=== PATIENT | female | born 1970 | race Caucasian/White ===

== ENCOUNTER 2023-09-10 19:36 | Inpatient (IN) | payer OTHER ==
[~2023-09-10] VITALS: Ht 154.9 cm; Wt 90.7 kg
[2023-09-10 19:51] VITALS: BP 150/81; PULSE 80; RESP 18; TEMP 97; O2SAT 97
[2023-09-10 20:53] LABS: BASOPHILS # (AUTO) 0.1 K/uL (0.00-0.22); BASOPHILS % (AUTO) 0.8 % (0.0-2.0); EOSINOPHILS # (AUTO) 1.2 K/uL (0-0.4); EOSINOPHILS % (AUTO) 9.9 % (0.0-4.0); HEMOGLOBIN 13.3 g/dL (12.0-16.0); LYMPHOCYTES # (AUTO) 4.7 K/uL (2.5-16.5); LYMPHOCYTES % (AUTO) 37.7 % (20.5-51.1); MEAN CORPUSCULAR HEMOGLOBIN 30 pg (27-31); MEAN CORPUSCULAR HGB CONC 34 g/dL (33-37); MEAN CORPUSCULAR VOLUME 89.3 fL (80-94); MONOCYTES # (AUTO) 0.8 K/uL (0.8-1.0); MONOCYTES % (AUTO) 6.1 % (1.7-9.3); NEUTROPHILS # (AUTO) 5.6 K/uL (1.8-7.7); NEUTROPHILS % (AUTO) 45.5 % (42.2-75.2); PLATELET COUNT (AUTO) 285 K/uL (140-450); RED BLOOD CELL COUNT(AUTO) 4.36 MIL/uL (4.20-5.40); RED CELL DISTRIBUTION WIDTH 13.3 % (11.6-13.7); WHITE BLOOD COUNT (AUTO) 12.4 K/uL (4.8-10.8)
[2023-09-10] MEDS ORDERED: KETOROLAC 30 MG/ML VIAL IM ONE (21:30)
[2023-09-10] MEDS ORDERED: LIDOCAINE 5% 1 EA PATCH TP ONE (21:30)
[2023-09-10 21:31] LABS: ALANINE AMINOTRANSFERASE 34 U/L (12-78); ALBUMIN 3.4 g/dL (3.4-5.0); ALKALINE PHOSPHATASE 135 U/L (50-136); ASPARTATE AMINOTRANSFERASE 15 U/L (15-37); BILIRUBIN,DIRECT 0.1 mg/dL (0.0-0.3); TOTAL BILIRUBIN 0.5 mg/dL (0.0-1.0); TOTAL PROTEIN, SERUM 8.6 g/dL (6.4-8.2)
[2023-09-10] MEDS ORDERED: ASPIRIN 325 MG TAB PO ONE (21:40)
[2023-09-10] MEDS ORDERED: ASPIRIN 81 MG TAB.CHEW ONE (21:44)
[2023-09-10 21:45] LABS: CALCIUM 9.6 mg/dL (8.5-10.1); CARBON DIOXIDE 32.6 mmol/L (21-32); CREATININE 0.8 mg/dL (0.6-1.3); POTASSIUM 3.6 mmol/L (3.5-5.1)
[2023-09-10 22:00] VITALS: O2SAT 98
[2023-09-10] MEDS ORDERED: ACETAMINOPHEN 325 MG TAB PO PRN (23:25)
[2023-09-10] MEDS ORDERED: ONDANSETRON 4 MG/2 ML VIAL IVP PRN (23:25)
[2023-09-10] MEDS ORDERED: MAG SULF 2000 MG/WATER PREMIX 50 ML IV PRN (23:25)
[2023-09-10] MEDS ORDERED: MAGNESIUM OXIDE 400 MG TAB PO PRN (23:25)
[2023-09-10] MEDS ORDERED: KCL 20 MEQ IN 100 mL PREMIX 200 ML IV PRN (23:25)
[2023-09-10] MEDS ORDERED: POTASSIUM CHLORIDE 10 MEQ TABER PO PRN (23:25)
[2023-09-10] MEDS ORDERED: hePARIN / DEXT 5% PREMIX 250 ML IV SCH (23:35)
[2023-09-10] MEDS ORDERED: HEPARIN PER PHARMACY MC PRN (23:35)
[2023-09-11] MEDS: MORPHINE SULFATE 4 MG/ML SYR IVP PRN ×2 (03:00→23:30)
[2023-09-11 03:41] LABS: INR 0.9 (0.8-1.2); PARTIAL THROMBOPLASTIN TIME 25.9 secs (22-35.6); PROTHROMBIN TIME 9.5 secs (10.8-13.4)
[2023-09-11] MEDS: hePARIN / DEXT 5% PREMIX 250 ML IV SCH ×2 (04:59→21:51)
[2023-09-11 06:19] VITALS: O2SAT 98
[2023-09-11 07:30] LABS: BASOPHILS # (AUTO) 0.1 K/uL (0.00-0.22); BASOPHILS % (AUTO) 0.7 % (0.0-2.0); EOSINOPHILS # (AUTO) 1.4 K/uL (0-0.4); EOSINOPHILS % (AUTO) 10.5 % (0.0-4.0); HEMATOCRIT 36.1 % (36-48); HEMOGLOBIN 12.3 g/dL (12.0-16.0); LYMPHOCYTES # (AUTO) 6.2 K/uL (2.5-16.5); LYMPHOCYTES % (AUTO) 47.2 % (20.5-51.1); MEAN CORPUSCULAR HEMOGLOBIN 31 pg (27-31); MEAN CORPUSCULAR HGB CONC 34 g/dL (33-37); MEAN CORPUSCULAR VOLUME 89.7 fL (80-94); MONOCYTES # (AUTO) 0.6 K/uL (0.8-1.0); MONOCYTES % (AUTO) 4.7 % (1.7-9.3); NEUTROPHILS # (AUTO) 4.8 K/uL (1.8-7.7); NEUTROPHILS % (AUTO) 36.9 % (42.2-75.2); PLATELET COUNT (AUTO) 246 K/uL (140-450); RED BLOOD CELL COUNT(AUTO) 4.02 MIL/uL (4.20-5.40); RED CELL DISTRIBUTION WIDTH 13.1 % (11.6-13.7); WHITE BLOOD COUNT (AUTO) 13.1 K/uL (4.8-10.8)
[2023-09-11 07:55] LABS: CARBON DIOXIDE 29.6 mmol/L (21-32); CREATININE 0.7 mg/dL (0.6-1.3); POTASSIUM 3.6 mmol/L (3.5-5.1); TOTAL BILIRUBIN 0.3 mg/dL (0.0-1.0); TOTAL PROTEIN, SERUM 7.5 g/dL (6.4-8.2)
[2023-09-11 08:32] VITALS: O2SAT 98
[2023-09-11] MEDS: HYDROcodone/APAP 5/325 MG 1 TAB TAB PO PRN (13:54)
[2023-09-11 19:26] VITALS: O2SAT 98
[2023-09-11 21:20] VITALS: BP 122/53; PULSE 73; RESP 18; TEMP 97.8; O2SAT 94
[2023-09-11 22:00] VITALS: PULSE 71
[2023-09-12] VITALS: BP 118/55; PULSE 68; PULSE 76; RESP 18; TEMP 97.8; O2SAT 93
[2023-09-12] MEDS: hePARIN / DEXT 5% PREMIX 250 ML IV SCH ×4 (03:13→21:22)
[2023-09-12 04:00] VITALS: BP 110/52; PULSE 75; PULSE 82; RESP 18; TEMP 98.1; O2SAT 93
[2023-09-12 07:31] LABS: HEMOGLOBIN 12.3 g/dL (12.0-16.0); MEAN CORPUSCULAR HEMOGLOBIN 31 pg (27-31); MEAN CORPUSCULAR HGB CONC 34 g/dL (33-37); MEAN CORPUSCULAR VOLUME 89.4 fL (80-94)
[2023-09-12 07:35] LABS: BASOPHILS # (AUTO) 0.1 K/uL (0.00-0.22); BASOPHILS % (AUTO) 0.7 % (0.0-2.0); EOSINOPHILS # (AUTO) 1.7 K/uL (0-0.4); EOSINOPHILS % (AUTO) 10.8 % (0.0-4.0); HEMATOCRIT 36.1 % (36-48); LYMPHOCYTES % (AUTO) 45.3 % (20.5-51.1); MONOCYTES # (AUTO) 0.8 K/uL (0.8-1.0); MONOCYTES % (AUTO) 5.4 % (1.7-9.3); NEUTROPHILS # (AUTO) 5.9 K/uL (1.8-7.7); NEUTROPHILS % (AUTO) 37.8 % (42.2-75.2); PLATELET COUNT (AUTO) 257 K/uL (140-450); RED BLOOD CELL COUNT(AUTO) 4.04 MIL/uL (4.20-5.40); RED CELL DISTRIBUTION WIDTH 13.3 % (11.6-13.7); WHITE BLOOD COUNT (AUTO) 15.5 K/uL (4.8-10.8)
[2023-09-12 07:57] LABS: ALBUMIN 2.9 g/dL (3.4-5.0); ANION GAP 11.8 (8-16); CALCIUM 8.6 mg/dL (8.5-10.1); CARBON DIOXIDE 28.6 mmol/L (21-32); CREATININE 0.7 mg/dL (0.6-1.3); MAGNESIUM 1.9 mg/dL (1.8-2.4); POTASSIUM 3.4 mmol/L (3.5-5.1); TOTAL BILIRUBIN 0.4 mg/dL (0.0-1.0); TOTAL PROTEIN, SERUM 7.5 g/dL (6.4-8.2)
[2023-09-12 08:00] VITALS: BP 111/54; PULSE 63; RESP 16; TEMP 97.3; O2SAT 96
[2023-09-12] MEDS: ECOTRIN 81 MG TABEC PO SCH (08:25)
[2023-09-12 12:00] VITALS: BP 116/62; PULSE 68; RESP 16; TEMP 98.3; O2SAT 96
[2023-09-12 14:14] LABS: APPEARANCE,URINE CLEAR (CLEAR); BILIRUBIN,URINE NEGATIVE (NEGATIVE); BLOOD, URINE NEGATIVE (NEGATIVE); COLOR,URINE YELLOW (YELLOW); LEUKOCYTE ESTERASE ,URINE NEGATIVE (NEGATIVE); NITRITE, URINE NEGATIVE (NEGATIVE); PH,URINE 6.5 (5.0-9.0); PROTEIN,URINE NEGATIVE (NEGATIVE); UGLUCOSE NEGATIVE (NEGATIVE); UROBILINOGEN,URINE 0.2 EU/dL (0.2 - 1)
[2023-09-12 16:00] VITALS: BP 117/50; PULSE 64; RESP 17; TEMP 98.1; O2SAT 96
[2023-09-12 20:00] VITALS: BP 125/50; PULSE 73; PULSE 77; RESP 18; TEMP 97.9; O2SAT 94
[2023-09-12] MEDS ORDERED: METF-1243 PO (20:25)
[2023-09-12] MEDS ORDERED: ATOR10TA PO (20:25)
[2023-09-12] MEDS ORDERED: ASPI81EC19 PO (20:25)
[2023-09-12] MEDS: HYDROcodone/APAP 5/325 MG 1 TAB TAB PO PRN (21:37)
[2023-09-13] VITALS: BP 112/61; PULSE 67; PULSE 72; RESP 18; TEMP 99; O2SAT 97
[2023-09-13 03:27] LABS: BASOPHILS # (AUTO) 0.1 K/uL (0.00-0.22); BASOPHILS % (AUTO) 0.5 % (0.0-2.0); EOSINOPHILS # (AUTO) 1.5 K/uL (0-0.4); EOSINOPHILS % (AUTO) 9.6 % (0.0-4.0); HEMATOCRIT 36.8 % (36-48); HEMOGLOBIN 12.5 g/dL (12.0-16.0); LYMPHOCYTES # (AUTO) 7.2 K/uL (2.5-16.5); LYMPHOCYTES % (AUTO) 44.6 % (20.5-51.1); MEAN CORPUSCULAR HEMOGLOBIN 30 pg (27-31); MEAN CORPUSCULAR HGB CONC 34 g/dL (33-37); MONOCYTES # (AUTO) 0.8 K/uL (0.8-1.0); MONOCYTES % (AUTO) 5.2 % (1.7-9.3); NEUTROPHILS # (AUTO) 6.4 K/uL (1.8-7.7); NEUTROPHILS % (AUTO) 40.1 % (42.2-75.2); PLATELET COUNT (AUTO) 254 K/uL (140-450); RED BLOOD CELL COUNT(AUTO) 4.13 MIL/uL (4.20-5.40); RED CELL DISTRIBUTION WIDTH 13.4 % (11.6-13.7); WHITE BLOOD COUNT (AUTO) 16.1 K/uL (4.8-10.8)
[2023-09-13 03:47] LABS: ALBUMIN 3.1 g/dL (3.4-5.0); ANION GAP 10.9 (8-16); CALCIUM 8.9 mg/dL (8.5-10.1); CARBON DIOXIDE 29.7 mmol/L (21-32); CREATININE 0.6 mg/dL (0.6-1.3); POTASSIUM 3.6 mmol/L (3.5-5.1); TOTAL BILIRUBIN 0.3 mg/dL (0.0-1.0); TOTAL PROTEIN, SERUM 7.1 g/dL (6.4-8.2)
[2023-09-13 04:00] VITALS: BP 104/49; PULSE 57; PULSE 69; RESP 18; TEMP 98.7; O2SAT 92
[2023-09-13] MEDS: hePARIN / DEXT 5% PREMIX 250 ML IV SCH (04:53)
[2023-09-13 08:00] VITALS: BP 112/52; PULSE 67; RESP 18; TEMP 98; O2SAT 94
[2023-09-13] MEDS: ECOTRIN 81 MG TABEC PO SCH (08:34)
[2023-09-13] MEDS: HYDROcodone/APAP 5/325 MG 1 TAB TAB PO PRN (08:35)
[2023-09-13 12:00] VITALS: BP 109/54; PULSE 60; RESP 18; TEMP 97; O2SAT 94
[2023-09-13 16:43] VITALS: BP 109/54; PULSE 60; RESP 18; TEMP 97
== END 2023-09-13 17:40 | disposition home or self-care (01) | DRG 190 ==
LOC: MED 19:36 → MMU 23:25 → MTU 09-11 21:06
PROVIDERS: ADMIT Hospitalist; ATTEND Hospitalist
DX: I20.9 Angina pectoris, unspecified (principal); I21.A1 Myocardial infarction type 2; J96.01 Acute respiratory failure with hypoxia; I31.9 Disease of pericardium, unspecified; K76.0 Fatty (change of) liver, not elsewhere classified; D72.829 Elevated white blood cell count, unspecified; I45.10 Unspecified right bundle-branch block; E66.9 Obesity, unspecified; Z90.49 Acquired absence of other specified parts of digestive tract; Z98.891 History of uterine scar from previous surgery; Z68.37 Body mass index [BMI] 37.0-37.9, adult
CPT/HCPCS: 36415; 71045; 71275; 80048; 80053; 80076; 81003; 83735; 83880; 84484; 85025; 85610; 85651; 85730; 86140; 87081; 99285; J1644; J1885; J2270; Q9967